=== PATIENT | male | born 1935 | race Caucasian/White ===

== ENCOUNTER 2023-07-23 09:40 | Inpatient (IN) | payer MEDICARE ==
[~2023-07-23] VITALS: Ht 177.8 cm; Wt 88.4 kg
[2023-07-23 10:48] LABS: BASOPHILS # (AUTO) 0.1 X10'3 (0-0.2); BASOPHILS % (AUTO) 0.9 % (0-1); EOSINOPHILS # (AUTO) 0.1 X10'3 (0-0.9); EOSINOPHILS % (AUTO) 2.5 % (0-6); HEMATOCRIT 41.6 % (42.0-52.0); HEMOGLOBIN 13.9 g/dl (14.0-17.9); LYMPHOCYTES # (AUTO) 1.9 X10'3 (1.1-4.8); LYMPHOCYTES % (AUTO) 31.6 % (21-51); MEAN CORPUSCULAR HGB CONC 33.4 g/dL (33.0-36.5); MEAN PLATELET VOLUME 8.4 FL (7.4-10.4); MONOCYTES # (AUTO) 0.6 X10'3 (0-0.9); MONOCYTES % (AUTO) 9.4 % (2-12); NEUTROPHILS # (AUTO) 3.3 X10'3 (1.8-7.7); NEUTROPHILS % (AUTO) 55.6 % (42-75); PLATELET COUNT 238 X10'3 (140-440); RED BLOOD COUNT 4.47 X10'6 (4.70-6.10); RED CELL DISTRIBUTION WIDTH 14.5 % (11.5-14.5); WHITE BLOOD COUNT 5.9 X10'3 (4.5-11.0)
[2023-07-23 11:02] LABS: APTT 48 SECONDS (22-32)
[2023-07-23 11:15] LABS: ALBUMIN 3.2 G/DL (3.4-5.0); ANION GAP 8 (8-16); BLOOD UREA NITROGEN 22 MG/DL (7-18); BUN/CREATININE RATIO 12.4 (10.0-20.0); CALCIUM 8.6 MG/DL (8.5-10.1); CHLORIDE 105 MMOL/L (99-107); CREATININE 1.77 MG/DL (0.60-1.10); GLUCOSE 106 MG/DL (70-104); PRO BRAIN NATRIURETIC PEPTIDE 991 PG/ML (0-450); SODIUM 139 MMOL/L (135-145); TOTAL CARBON DIOXIDE 25.8 MMOL/L (24-32); eCRCL 31 ML/MIN; eGFR 37 ML/MIN
[2023-07-23] MEDS ORDERED: heparin 10,000 units/1 ML INJ IV ONE ×2 (11:30→13:00)
[2023-07-23] MEDS: heparin 25,000 UNIT/250ml bag 250 ML IV PRN (11:57)
[2023-07-23] MEDS: MESSAGE TO NURSING IV ONE ×3 (11:59→19:25)
[2023-07-23 12:58] LABS: PROTHROMBIN TIME 10.9 SECONDS (9.0-12.0)
[2023-07-23] MEDS ORDERED: heparin 10,000 units/1 ML INJ IV PRN (13:00)
[2023-07-23] MEDS ORDERED: HYDROcodone/acetaminophen 5mg/325mg tablet PO PRN (13:00)
[2023-07-23] MEDS ORDERED: potassium Cl 20 mEq SR tablet PO PRN ×2 (13:00)
[2023-07-23] MEDS ORDERED: potassium Cl 40MEQ/1/2NS 520ml 520 ML IV PRN (13:00)
[2023-07-23] MEDS ORDERED: magnesium Cl slow-release 64mg tablet PO PRN (13:00)
[2023-07-23] MEDS ORDERED: magnesium 4gm in 100ml NS 100 ML IV PRN (13:00)
[2023-07-23] MEDS ORDERED: morphine 2 MG/ML inj. syringe IV PRN (13:00)
[2023-07-23] MEDS ORDERED: ondansetron/PF 4mg/2ml inj IV PRN (13:00)
[2023-07-23] MEDS ORDERED: magnesium 2GM in 50ml NS 50 ML IV PRN (13:00)
[2023-07-23] MEDS ORDERED: acetaminophen 325mg tablet PO PRN (13:00)
[2023-07-23] MEDS: PERFLUTREN PROTEIN-A MICROSPHR (Optison) 0.22 MG/ML 3ML VIAL IV ONE (13:10)
[2023-07-23 15:30] VITALS: BP 151/97; PULSE 95; RESP 18; TEMP 97.8; O2SAT 96
[2023-07-23 18:00] VITALS: BP 156/94; PULSE 94; RESP 25; TEMP 98.2; O2SAT 97
[2023-07-23] MEDS ORDERED: LOSA-415 PO (18:05)
[2023-07-23] MEDS ORDERED: ATOR20TA PO (18:05)
[2023-07-23] MEDS: polyvinyl alcohol eye drops 15ML BOTTLE EACHEYE PRN (19:13)
[2023-07-23] MEDS: K and/or MAG REPLACEMENT MC SCH (20:00)
[2023-07-23 22:00] VITALS: BP 158/94; PULSE 92; RESP 16; TEMP 97.8; O2SAT 96
[2023-07-24] VITALS (21 sets, daily range): BP systolic 123–182; BP diastolic 67–98; PULSE 68–103; RESP 16–22; TEMP 97.8–99; O2SAT 95–98
[2023-07-24] MEDS: MESSAGE TO NURSING IV ONE ×4 (01:50→22:35)
[2023-07-24 06:28] LABS: BASOPHILS # (AUTO) 0.1 X10'3 (0-0.2); BASOPHILS % (AUTO) 1.5 % (0-1); EOSINOPHILS # (AUTO) 0.2 X10'3 (0-0.9); EOSINOPHILS % (AUTO) 3.4 % (0-6); HEMATOCRIT 41.4 % (42.0-52.0); HEMOGLOBIN 13.8 g/dl (14.0-17.9); LYMPHOCYTES # (AUTO) 1.6 X10'3 (1.1-4.8); LYMPHOCYTES % (AUTO) 35.1 % (21-51); MEAN CORPUSCULAR HEMOGLOBIN 30.9 PG (27.0-31.0); MEAN CORPUSCULAR HGB CONC 33.3 g/dL (33.0-36.5); MEAN PLATELET VOLUME 8.1 FL (7.4-10.4); MONOCYTES # (AUTO) 0.4 X10'3 (0-0.9); MONOCYTES % (AUTO) 9.2 % (2-12); NEUTROPHILS # (AUTO) 2.4 X10'3 (1.8-7.7); NEUTROPHILS % (AUTO) 50.8 % (42-75); PLATELET COUNT 221 X10'3 (140-440); RED BLOOD COUNT 4.46 X10'6 (4.70-6.10); RED CELL DISTRIBUTION WIDTH 14.3 % (11.5-14.5); WHITE BLOOD COUNT 4.6 X10'3 (4.5-11.0)
[2023-07-24 06:41] LABS: ALBUMIN 2.8 G/DL (3.4-5.0); ANION GAP 9 (8-16); BLOOD UREA NITROGEN 20 MG/DL (7-18); BUN/CREATININE RATIO 13.3 (10.0-20.0); CALCIUM 8.5 MG/DL (8.5-10.1); CHLORIDE 109 MMOL/L (99-107); GLUCOSE 116 MG/DL (70-104); POTASSIUM 3.9 MMOL/L (3.5-5.1); SODIUM 141 MMOL/L (135-145); TOTAL CARBON DIOXIDE 23.3 MMOL/L (24-32); eCRCL 37 ML/MIN; eGFR 44 ML/MIN
[2023-07-24] MEDS: losartan 25mg tablet PO SCH (08:50)
[2023-07-24] MEDS ORDERED: verapamil 2.5 mg/ml inj IV ONE (09:57)
[2023-07-24] MEDS ORDERED: LIDOcaine 1% (10mg/ml) 2ml vial ONE (09:57)
[2023-07-24] MEDS ORDERED: midazolam 1 mg/ML 2ml injection ONE (09:58)
[2023-07-24] MEDS ORDERED: fentaNYL/PF 50MCG/1 ML 2ML syringe ONE (09:58)
[2023-07-24] MEDS ORDERED: heparin 1,000unit/ml 10ml vial 10 ML ONE (09:58)
[2023-07-24] MEDS ORDERED: iohexol 350MG/ML 100ml bottle IV ONE (09:58)
[2023-07-24] MEDS ORDERED: nitroGLYCERIN 500mcg/5mL D5W 5 ML IV ONE (10:04)
[2023-07-24] MEDS ORDERED: iohexol 350 MG/ML 50ML vial IV ONE (10:45)
[2023-07-24] MEDS: normal saline 1000ml 1,000 ML IV SCH (11:39)
[2023-07-24 11:42] LABS: CHOL/HDL RATIO 3.1 (0.00-4.99); CHOLESTEROL 105 MG/DL (0-200); HDL CHOLESTEROL 34 MG/DL (35-60); LDL CHOLESTEROL 58 MG/DL (50-100); TRIGLYCERIDES 119 MG/DL (20-135)
[2023-07-24] MEDS: MESSAGE TO PHARMACY IJ ONE (17:09)
[2023-07-24] MEDS: MESSAGE TO NURSING PO ONE ×4 (17:10)
[2023-07-24 17:57] LABS: BILIRUBIN,URINE NEGATIVE (Neg); CLARITY,URINE CLOUDY (Clear); COLOR,URINE YELLOW (Yellow); GLUCOSE, URINE NEGATIVE (Neg); KETONES,URINE NEGATIVE (Neg); LEUKOCYTE ESTERASE ,URINE NEGATIVE (Neg); NITRITES, URINE NEGATIVE (Neg); OCCULT BLOOD,URINE NEGATIVE (Neg); PROTEIN,URINE NEGATIVE (Neg)
[2023-07-24 18:12] LABS: MUCUS STRANDS FEW /LPF (Neg); SQUAMOUS EPITHELIAL CELL,UR MODERATE /LPF (FEW); UA COLLECTION TYPE NON-SPECIFIED
[2023-07-24 18:13] LABS: BACTERIA,URINE 1+ /HPF (Neg); RBC,URINE 0-2 /HPF (0-2); WBC,URINE 0-4 /HPF (0-4)
[2023-07-24 19:59] LABS: ABG HCO3 22.3 mmol/L (22.0-26.0); ABG OXYGEN SATURATION 94.3 % (94-97); ABG PH (T) 7.448 (7.340-7.440); ABG PO2 (T) 68.9 mmHg (75.0-100.0); FCOHb 0.6 % (0.0-3.9); FHHb 5.6 % (0.0-5.0); FMetHb 0.3 % (0.0-1.5); FO2Hb 93.5 % (94-97); MODE ROOM AIR; TOTAL HEMOGLOBIN 13.6 G/dl (14.0-17.9)
[2023-07-24] MEDS: albuterol 2.5 MG/3 ML nebule ONE (20:15)
[2023-07-24] MEDS: mupirocin 2% nasal ointment 1gm UD NS SCH (20:58)
[2023-07-24] MEDS: metoprolol tartrate 12.5mg (1/2 tablet) PO SCH (20:58)
[2023-07-24] MEDS: atorvastatin 20mg tablet PO SCH (20:58)
[2023-07-24] MEDS: morphine 2 MG/ML inj. syringe IV PRN (22:41)
[2023-07-24] MEDS: nitroGLYCERIN 0.4mg/hour patch TD ONE (22:42)
[2023-07-25] VITALS (14 sets, daily range): BP systolic 107–148; BP diastolic 68–86; PULSE 69–96; RESP 15–20; TEMP 97.7–98.5; O2SAT 96–98
[2023-07-25] MEDS: MESSAGE TO NURSING IV ONE ×3 (01:25→19:45)
[2023-07-25] MEDS: heparin 10,000 units/1 ML INJ IV PRN (01:33)
[2023-07-25] MEDS: cefazolin 2gm/D5W 100mL 100 ML IV ONE (05:00)
[2023-07-25 06:17] LABS: INR 1.1 INR; PROTHROMBIN TIME 11.7 SECONDS (9.0-12.0)
[2023-07-25 06:55] LABS: EOSINOPHILS # (AUTO) 0.2 X10'3 (0-0.9); EOSINOPHILS % (AUTO) 4.9 % (0-6); HEMATOCRIT 37.8 % (42.0-52.0); HEMOGLOBIN 12.4 g/dl (14.0-17.9); LYMPHOCYTES # (AUTO) 1.5 X10'3 (1.1-4.8); LYMPHOCYTES % (AUTO) 37.9 % (21-51); MEAN CORPUSCULAR HEMOGLOBIN 31.3 PG (27.0-31.0); MEAN CORPUSCULAR HGB CONC 32.8 g/dL (33.0-36.5); MEAN CORPUSCULAR VOLUME 95.6 FL (78-98); MEAN PLATELET VOLUME 8.8 FL (7.4-10.4); MONOCYTES # (AUTO) 0.4 X10'3 (0-0.9); NEUTROPHILS # (AUTO) 1.8 X10'3 (1.8-7.7); NEUTROPHILS % (AUTO) 45.2 % (42-75); PLATELET COUNT 157 X10'3 (140-440); RED BLOOD COUNT 3.95 X10'6 (4.70-6.10); RED CELL DISTRIBUTION WIDTH 14.7 % (11.5-14.5)
[2023-07-25] MEDS ORDERED: losartan 25mg tablet PO SCH (08:00)
[2023-07-25] MEDS: amLODIPine 5mg tablet PO SCH (08:15)
[2023-07-25] MEDS: MESSAGE TO NURSING PO ONE (10:00)
[2023-07-25] MEDS: ringers solution, lacted 1,000 ML IV ONE (10:55)
[2023-07-25] MEDS ORDERED: iohexol 300mg/ml 100ml inj. ONE (11:06)
[2023-07-25 12:13] LABS: ALANINE AMINOTRANSFERASE 29 U/L (12-78); ALBUMIN 2.6 G/DL (3.4-5.0); ALBUMIN/GLOBULIN RATIO 0.7 (1.1-1.5); ALKALINE PHOSPHATASE 39 IU/L (46-116); ANION GAP 8 (8-16); ASPARTATE AMINO TRANSFERASE 28 U/L (10-37); BILIRUBIN,TOTAL 0.6 MG/DL (0.1-1.0); BLOOD UREA NITROGEN 15 MG/DL (7-18); BUN/CREATININE RATIO 10.6 (10.0-20.0); CALCIUM 8.1 MG/DL (8.5-10.1); CHLORIDE 106 MMOL/L (99-107); CREATININE 1.42 MG/DL (0.60-1.10); GLUCOSE 120 MG/DL (70-104); MAGNESIUM 2.1 MG/DL (1.5-2.4); POTASSIUM 3.8 MMOL/L (3.5-5.1); SODIUM 137 MMOL/L (135-145); TOTAL CARBON DIOXIDE 22.9 MMOL/L (24-32); TOTAL PROTEIN 6.4 G/DL (6.4-8.2); eCRCL 39 ML/MIN; eGFR 47 ML/MIN
[2023-07-25] MEDS: acetylcysteine 200 MG/ml 4ml vial PO SCH (16:13)
[2023-07-25] MEDS: LidoCAINE 2% Topical Jelly 11mL syringe (UROJET) TOP ONE (16:55)
[2023-07-26] VITALS (16 sets, daily range): BP systolic 109–207; BP diastolic 40–87; PULSE 74–113; RESP 10–36; TEMP 97.4–98.3; O2SAT 95–99
[2023-07-26 02:24] LABS: ALBUMIN 2.7 G/DL (3.4-5.0); ANION GAP 4 (8-16); BLOOD UREA NITROGEN 13 MG/DL (7-18); CALCIUM 8.5 MG/DL (8.5-10.1); CHLORIDE 109 MMOL/L (99-107); CREATININE 1.45 MG/DL (0.60-1.10); GLUCOSE 104 MG/DL (70-104); MAGNESIUM 2.1 MG/DL (1.5-2.4); POTASSIUM 4.1 MMOL/L (3.5-5.1); SODIUM 141 MMOL/L (135-145); TOTAL CARBON DIOXIDE 27.8 MMOL/L (24-32); eCRCL 38 ML/MIN; eGFR 46 ML/MIN
[2023-07-26 02:26] LABS: BASOPHILS % (AUTO) 0.9 % (0-1); EOSINOPHILS # (AUTO) 0.3 X10'3 (0-0.9); EOSINOPHILS % (AUTO) 5.8 % (0-6); HEMATOCRIT 40.1 % (42.0-52.0); HEMOGLOBIN 13.6 g/dl (14.0-17.9); LYMPHOCYTES # (AUTO) 1.7 X10'3 (1.1-4.8); LYMPHOCYTES % (AUTO) 38.5 % (21-51); MEAN CORPUSCULAR HEMOGLOBIN 31.4 PG (27.0-31.0); MEAN CORPUSCULAR HGB CONC 33.8 g/dL (33.0-36.5); MEAN CORPUSCULAR VOLUME 92.6 FL (78-98); MEAN PLATELET VOLUME 7.9 FL (7.4-10.4); MONOCYTES # (AUTO) 0.5 X10'3 (0-0.9); MONOCYTES % (AUTO) 10.2 % (2-12); NEUTROPHILS % (AUTO) 44.6 % (42-75); PLATELET COUNT 182 X10'3 (140-440); RED BLOOD COUNT 4.33 X10'6 (4.70-6.10); RED CELL DISTRIBUTION WIDTH 14.7 % (11.5-14.5); WHITE BLOOD COUNT 4.5 X10'3 (4.5-11.0)
[2023-07-26 02:28] LABS: INR 1.1 INR; PROTHROMBIN TIME 11.1 SECONDS (9.0-12.0)
[2023-07-26] MEDS: MESSAGE TO NURSING IV ONE (02:50)
[2023-07-26] MEDS: Insulin Reg/NS 100units/100mL 100 ML IV SCH ×2 (04:10→17:00)
[2023-07-26] MEDS ORDERED: insulin glargine (Lantus) pen - multi-dose SQ PRN ×2 (04:10→17:00)
[2023-07-26] MEDS ORDERED: dextrose 50%-water 50ml dispensing syringe IV PRN ×2 (04:10→17:00)
[2023-07-26] MEDS: MIDAZolam 1 MG/ML 5ML VIAL IV ONE (06:00)
[2023-07-26] MEDS: cefazolin 2gm/D5W 100mL 100 ML IV ONE (10:00)
[2023-07-26] MEDS ORDERED: cefazolin 2gm/D5W 100mL 100 ML IV SCH (10:00)
[2023-07-26] MEDS ORDERED: fentaNYL /PF 50mcg/ml 5ml ampule ONE ×2 (10:42)
[2023-07-26] MEDS ORDERED: MIDAZolam 1mg/ml 10ml vial ONE (10:42)
[2023-07-26] MEDS ORDERED: rocuronium 10mg/ml inj IV ONE ×3 (10:45→16:00)
[2023-07-26] MEDS ORDERED: propofol inj 20 ML IV ONE (10:45)
[2023-07-26] MEDS ORDERED: LIDOcaine 2% (20mg/ml) 5ml vial ONE (10:45)
[2023-07-26] MEDS: famotidine 20mg tablet PO ONE (11:38)
[2023-07-26] MEDS: midazolam 1 mg/ML 2ml injection IV ONE (11:43)
[2023-07-26] MEDS ORDERED: sevoflurane 250ml liquid IH ONE (11:55)
[2023-07-26] MEDS ORDERED: aminocaproic acid 250 MG/1 ML inj. ONE (12:00)
[2023-07-26 12:20] LABS: ABG BASE EXCESS -2.1 mmol/L (-2.0-2.0); ABG HCO3 20.9 mmol/L (22.0-26.0); ABG OXYGEN SATURATION 99.3 % (94-97); ABG PCO2 30.7 mmHg (35.0-48.0); ABG PH 7.451 (7.340-7.440); ABG PO2 425.9 mmHg (75.0-100.0); CL (ABG) 107 mmol/L (99-107); FCOHb 0.3 % (0.0-3.9); FHHb 0.7 % (0.0-5.0); FMetHb 0.3 % (0.0-1.5); FO2Hb 98.7 % (94-97); GLUCOSE (ABG) 116 mg/dl (70-104); IONIZED CA (ABG) 1.13 mmol/L (1.10-1.30); K (ABG) 4.1 mmol/L (3.5-5.1); TOTAL HEMOGLOBIN 13.1 G/dl (14.0-17.9)
[2023-07-26 12:27] LABS: ACT @ 1.70 U 275 SEC (193-297); ACT @ 2.84 U 382 SEC (260-420); BASELINE ACT 144 SEC (101-148); PATIENT WEIGHT 70.0k KG
[2023-07-26] MEDS: ceFAZolin 1000mg inj ONE (12:34)
[2023-07-26] MEDS: BUPIVACAINE liposomal/PF 13.3 MG/ML vial IM ONE (12:34)
[2023-07-26] MEDS: BUPIVAcaine/PF 2.5mg/ml (0.25%) 10ml vial ONE (12:34)
[2023-07-26] MEDS ORDERED: albumin (Human) 5% 250ml 250 ML IV ONE ×2 (13:18→13:19)
[2023-07-26 13:20] LABS: ABG HCO3 VENOUS 20.1 mmol/L (21.0-28.0); ABG OXYGEN SATURATION VENOUS 76.5 % (75 - 99 %); ABG PCO2 VENOUS 37.3 mmHg (41.0-54.0); ABG PH (VENOUS) 7.349 (7.310-7.450); ABG PO2 VENOUS 41.8 mmHg (25.0-35.0); CL (ABG) 105 mmol/L (99-107); FCOHb VENOUS 0.3 %; FHHb VENOUS 23.4 %; FMetHb VENOUS 0.3 % (0.0 - 0.5); GLUCOSE (ABG) 106 mg/dl (70-104); IONIZED CA (ABG) 1.11 mmol/L (1.10-1.30); K (ABG) 4.4 mmol/L (3.5-5.1); TOTAL HEMOGLOBIN 12.3 G/dl (14.0-17.9)
[2023-07-26 13:56] LABS: ABG BASE EXCESS VENOUS -4.8 mmol/L (-2.0 - 2.0); ABG HCO3 VENOUS 20.2 mmol/L (21.0-28.0); ABG OXYGEN SATURATION VENOUS 67.6 % (75 - 99 %); ABG PCO2 VENOUS 37.2 mmHg (41.0-54.0); ABG PH (VENOUS) 7.352 (7.310-7.450); ABG PO2 VENOUS 35.1 mmHg (25.0-35.0); CL (ABG) 106 mmol/L (99-107); FCOHb VENOUS 0.3 %; FHHb VENOUS 32.2 %; FMetHb VENOUS 0.3 % (0.0 - 0.5); FO2Hb VENOUS 67.2 %; GLUCOSE (ABG) 129 mg/dl (70-104); IONIZED CA (ABG) 1.08 mmol/L (1.10-1.30); K (ABG) 4.5 mmol/L (3.5-5.1)
[2023-07-26 14:37] LABS: ABG BASE EXCESS -3.8 mmol/L (-2.0-2.0); ABG HCO3 20.7 mmol/L (22.0-26.0); ABG OXYGEN SATURATION 98.9 % (94-97); ABG PH 7.378 (7.340-7.440); ABG PO2 150.5 mmHg (75.0-100.0); CL (ABG) 107 mmol/L (99-107); FCOHb 0.3 % (0.0-3.9); FHHb 1.1 % (0.0-5.0); FO2Hb 98.6 % (94-97); GLUCOSE (ABG) 139 mg/dl (70-104); IONIZED CA (ABG) 1.08 mmol/L (1.10-1.30); K (ABG) 4.5 mmol/L (3.5-5.1); TOTAL HEMOGLOBIN 12.3 G/dl (14.0-17.9)
[2023-07-26 15:11] LABS: ABG BASE EXCESS -4.5 mmol/L (-2.0-2.0); ABG HCO3 20.4 mmol/L (22.0-26.0); ABG OXYGEN SATURATION 98.9 % (94-97); ABG PH 7.359 (7.340-7.440); ABG PO2 168.7 mmHg (75.0-100.0); CL (ABG) 107 mmol/L (99-107); FCOHb 0.3 % (0.0-3.9); FHHb 1.1 % (0.0-5.0); FMetHb 0.3 % (0.0-1.5); FO2Hb 98.3 % (94-97); GLUCOSE (ABG) 150 mg/dl (70-104); IONIZED CA (ABG) 1.07 mmol/L (1.10-1.30); K (ABG) 4.6 mmol/L (3.5-5.1); TOTAL HEMOGLOBIN 12.5 G/dl (14.0-17.9)
[2023-07-26 15:40] LABS: ABG BASE EXCESS -5.2 mmol/L (-2.0-2.0); ABG HCO3 20.1 mmol/L (22.0-26.0); ABG OXYGEN SATURATION 98.7 % (94-97); ABG PCO2 38.1 mmHg (35.0-48.0); ABG PO2 146.4 mmHg (75.0-100.0); CL (ABG) 108 mmol/L (99-107); FCOHb 0.3 % (0.0-3.9); FHHb 1.3 % (0.0-5.0); FMetHb 0.3 % (0.0-1.5); FO2Hb 98.1 % (94-97); GLUCOSE (ABG) 144 mg/dl (70-104); IONIZED CA (ABG) 1.07 mmol/L (1.10-1.30); K (ABG) 4.4 mmol/L (3.5-5.1); TOTAL HEMOGLOBIN 11.9 G/dl (14.0-17.9)
[2023-07-26 15:42] LABS: ACTIVATED CLOTTING TIME 124 SEC (101-148)
[2023-07-26 15:52] LABS: ABG BASE EXCESS VENOUS -7.9 mmol/L (-2.0 - 2.0); ABG HCO3 VENOUS 17.8 mmol/L (21.0-28.0); ABG OXYGEN SATURATION VENOUS 78.6 % (75 - 99 %); ABG PCO2 VENOUS 36.8 mmHg (41.0-54.0); ABG PH (VENOUS) 7.302 (7.310-7.450); ABG PO2 VENOUS 45.2 mmHg (25.0-35.0); CL (ABG) 107 mmol/L (99-107); FCOHb VENOUS 0.3 %; FHHb VENOUS 21.3 %; FMetHb VENOUS 0.3 % (0.0 - 0.5); FO2Hb VENOUS 78.1 %; GLUCOSE (ABG) 127 mg/dl (70-104); IONIZED CA (ABG) 1.08 mmol/L (1.10-1.30); K (ABG) 4.1 mmol/L (3.5-5.1); TOTAL HEMOGLOBIN 11.7 G/dl (14.0-17.9)
[2023-07-26] MEDS ORDERED: fentaNYL/PF 50MCG/1 ML 2ML syringe ONE (16:02)
[2023-07-26 16:19] LABS: ABG BASE EXCESS VENOUS -5.6 mmol/L (-2.0 - 2.0); ABG HCO3 VENOUS 20.4 mmol/L (21.0-28.0); ABG OXYGEN SATURATION VENOUS 76.3 % (75 - 99 %); ABG PCO2 VENOUS 42.2 mmHg (41.0-54.0); ABG PH (VENOUS) 7.303 (7.310-7.450); ABG PO2 VENOUS 43.3 mmHg (25.0-35.0); CL (ABG) 108 mmol/L (99-107); FCOHb VENOUS 0.3 %; FHHb VENOUS 23.6 %; FMetHb VENOUS 0.3 % (0.0 - 0.5); FO2Hb VENOUS 75.8 %; GLUCOSE (ABG) 133 mg/dl (70-104); IONIZED CA (ABG) 1.08 mmol/L (1.10-1.30); TOTAL HEMOGLOBIN 12.1 G/dl (14.0-17.9)
[2023-07-26 16:21] LABS: ACTIVATED CLOTTING TIME 125 SEC (101-148)
[2023-07-26] MEDS ORDERED: potassium Cl 40MEQ/1/2NS 520ml 520 ML IV PRN (17:00)
[2023-07-26] MEDS ORDERED: potassium Cl 40MEQ/270ML bag 250 ML IV PRN (17:00)
[2023-07-26] MEDS ORDERED: metoclopramide 5 mg/ml inj IV PRN (17:00)
[2023-07-26] MEDS ORDERED: ondansetron/PF 4mg/2ml inj IV PRN (17:00)
[2023-07-26] MEDS ORDERED: sodium phosphate inj. 30 MMOL in dextrose 5%-water 250 ML IV PRN (17:00)
[2023-07-26] MEDS ORDERED: potassium CL 10mEq/100ml bag 100 ML IV PRN (17:00)
[2023-07-26] MEDS ORDERED: normal saline 250ml IV soln 250 ML IV PRN (17:00)
[2023-07-26] MEDS ORDERED: magnesium hydroxide 30ml (MOM) UD suspension PO PRN (17:00)
[2023-07-26] MEDS ORDERED: mineral oil 133ml enema RC PRN (17:00)
[2023-07-26] MEDS ORDERED: HYDROmorphone 1 mg/ml syringe IV PRN (17:00)
[2023-07-26] MEDS ORDERED: sodium phosphate inj. 15 MMOL in dextrose 5%-water 250 ML IV PRN (17:00)
[2023-07-26] MEDS ORDERED: acetaminophen 325mg tablet PO PRN ×2 (17:00)
[2023-07-26] MEDS ORDERED: Neutra Phos packet PO PRN (17:00)
[2023-07-26 17:31] LABS: ABG BASE EXCESS -5.2 mmol/L (-2.0-2.0); ABG HCO3 20.3 mmol/L (22.0-26.0); ABG OXYGEN SATURATION 98.8 % (94-97); ABG PCO2 (T) 36.2 mmHg (35.0-48.0); ABG PH (T) 7.357 (7.340-7.440); ABG PO2 (T) 131.9 mmHg (75.0-100.0); FCOHb 0.3 % (0.0-3.9); FHHb 1.2 % (0.0-5.0); FMetHb 0.3 % (0.0-1.5); FO2Hb 98.2 % (94-97); MODE VENT - SIMV; PEEP 5 cm H2O; RESPIRATORY RATE 10 b/min; TIDAL VOLUME 550 mL; TOTAL HEMOGLOBIN 12.3 G/dl (14.0-17.9)
[2023-07-26 17:34] LABS: BASOPHILS % (AUTO) 0.4 % (0-1); EOSINOPHILS # (AUTO) 0.1 X10'3 (0-0.9); EOSINOPHILS % (AUTO) 0.7 % (0-6); HEMATOCRIT 33.8 % (42.0-52.0); HEMOGLOBIN 11.4 g/dl (14.0-17.9); LYMPHOCYTES # (AUTO) 1.2 X10'3 (1.1-4.8); LYMPHOCYTES % (AUTO) 16.4 % (21-51); MEAN CORPUSCULAR HEMOGLOBIN 31.4 PG (27.0-31.0); MEAN CORPUSCULAR HGB CONC 33.6 g/dL (33.0-36.5); MEAN CORPUSCULAR VOLUME 93.5 FL (78-98); MEAN PLATELET VOLUME 8.3 FL (7.4-10.4); MONOCYTES # (AUTO) 0.4 X10'3 (0-0.9); NEUTROPHILS # (AUTO) 5.7 X10'3 (1.8-7.7); NEUTROPHILS % (AUTO) 77.5 % (42-75); PLATELET COUNT 128 X10'3 (140-440); RED BLOOD COUNT 3.62 X10'6 (4.70-6.10); RED CELL DISTRIBUTION WIDTH 14.7 % (11.5-14.5); WHITE BLOOD COUNT 7.3 X10'3 (4.5-11.0)
[2023-07-26] MEDS: sodium chloride 0.45% 1,000 ML IV SCH (17:37)
[2023-07-26 17:38] LABS: ALANINE AMINOTRANSFERASE 95 U/L (12-78); ALBUMIN 2.6 G/DL (3.4-5.0); ALBUMIN/GLOBULIN RATIO 0.9 (1.1-1.5); ALKALINE PHOSPHATASE 32 IU/L (46-116); ANION GAP 9 (8-16); ASPARTATE AMINO TRANSFERASE 104 U/L (10-37); BILIRUBIN,TOTAL 0.9 MG/DL (0.1-1.0); BLOOD UREA NITROGEN 11 MG/DL (7-18); BUN/CREATININE RATIO 8.8 (10.0-20.0); CALCIUM 7.4 MG/DL (8.5-10.1); CHLORIDE 110 MMOL/L (99-107); CREATININE 1.25 MG/DL (0.60-1.10); GLUCOSE 125 MG/DL (70-104); MAGNESIUM 1.7 MG/DL (1.5-2.4); PHOSPHORUS 3.2 MG/DL (2.3-4.5); POTASSIUM 3.9 MMOL/L (3.5-5.1); SODIUM 141 MMOL/L (135-145); TOTAL CARBON DIOXIDE 22.1 MMOL/L (24-32); TOTAL PROTEIN 5.4 G/DL (6.4-8.2); eCRCL 44 ML/MIN; eGFR 55 ML/MIN
[2023-07-26] MEDS: sodium bicarbonate (8.4%) 1 mEq/ml syringe IV ONE ×3 (17:50→22:45)
[2023-07-26] MEDS: albumin (Human) 5% 250ml 250 ML IV PRN (17:58)
[2023-07-26] MEDS: niCARDipine-NS 40mg/200ml IVPB 200 ML IV PRN (17:59)
[2023-07-26] MEDS: potassium Cl 20mEq/100mL bag 100 ML IV PRN (17:59)
[2023-07-26 18:05] LABS: APTT 25 SECONDS (22-32); FIBRINOGEN 361 MG/DL (177-424); INR 1.1 INR; PROTHROMBIN TIME 11.9 SECONDS (9.0-12.0)
[2023-07-26] MEDS: nitroGLYCERIN-Tridil 50MG/D5W 250 ML IV PRN (18:14)
[2023-07-26] MEDS: HYDROmorphone inj. 0.5 MG/0.5 ML DISP.SYRIN IV PRN (18:43)
[2023-07-26] MEDS ORDERED: calcium gluconate inj. 2 GM in normal saline 100ml IV soln 100 ML IV ONE (19:05)
[2023-07-26] MEDS: calcium gluconate inj. 2 GM in normal saline 100ml IV soln 80 ML IV ONE (19:34)
[2023-07-26] MEDS: sennosides/docusate sodium tablet PO SCH (20:00)
[2023-07-26] MEDS: magnesium 4gm in 100ml NS 100 ML IV PRN (20:03)
[2023-07-26] MEDS: mupirocin 2% nasal ointment 1gm UD NS SCH (20:27)
[2023-07-26] MEDS: gabapentin 300mg capsule PO SCH (20:27)
[2023-07-26] MEDS: atorvastatin 10mg tablet PO SCH (21:00)
[2023-07-26] MEDS: acetaminophen 1,000mg/100ml IV 100 ML IV SCH (21:09)
[2023-07-26 21:24] LABS: ABG BASE EXCESS -4.8 mmol/L (-2.0-2.0); ABG HCO3 19.5 mmol/L (22.0-26.0); ABG OXYGEN SATURATION 97.9 % (94-97); ABG PCO2 (T) 32.2 mmHg (35.0-48.0); ABG PH (T) 7.397 (7.340-7.440); ABG PO2 (T) 102.9 mmHg (75.0-100.0); FCOHb 0.3 % (0.0-3.9); FHHb 2.1 % (0.0-5.0); FMetHb 0.3 % (0.0-1.5); FO2Hb 97.3 % (94-97); MODE VENT - SIMV; PATIENT TEMPERATURE 36.2; PEEP 5 cm H2O; RESPIRATORY RATE 8 b/min; TIDAL VOLUME 550 mL; TOTAL HEMOGLOBIN 11.5 G/dl (14.0-17.9)
[2023-07-26] MEDS ORDERED: sodium bicarbonate (8.4%) inj. 100 MEQ in dextrose 5%-water 1,000 ML IV SCH (21:35)
[2023-07-26] MEDS: albumin (human) 25% 100ml IV 100 ML IV ONE (21:49)
[2023-07-26] MEDS: DOBUTamine-DoBUTrex 500mg/D5W 250 ML IV SCH (21:52)
[2023-07-26 23:22] LABS: ALBUMIN 3.3 G/DL (3.4-5.0); ANION GAP 11 (8-16); BLOOD UREA NITROGEN 13 MG/DL (7-18); BUN/CREATININE RATIO 8.1 (10.0-20.0); CALCIUM 8.2 MG/DL (8.5-10.1); CHLORIDE 105 MMOL/L (99-107); CREATININE 1.61 MG/DL (0.60-1.10); GLUCOSE 134 MG/DL (70-104); HEMOGLOBIN 9.8 g/dl (14.0-17.9); MAGNESIUM 2.5 MG/DL (1.5-2.4); PLATELET COUNT 120 X10'3 (140-440); POTASSIUM 3.8 MMOL/L (3.5-5.1); RED BLOOD COUNT 3.12 X10'6 (4.70-6.10); SODIUM 141 MMOL/L (135-145); TOTAL CARBON DIOXIDE 25.4 MMOL/L (24-32); WHITE BLOOD COUNT 5.8 X10'3 (4.5-11.0); eCRCL 34 ML/MIN; eGFR 41 ML/MIN
[2023-07-26 23:24] LABS: BASOPHILS % (AUTO) 0.3 % (0-1); EOSINOPHILS % (AUTO) 0 % (0-6); LYMPHOCYTES # (AUTO) 0.4 X10'3 (1.1-4.8); LYMPHOCYTES % (AUTO) 6.9 % (21-51); MEAN CORPUSCULAR HEMOGLOBIN 31.3 PG (27.0-31.0); MEAN CORPUSCULAR HGB CONC 33.7 g/dL (33.0-36.5); MEAN CORPUSCULAR VOLUME 92.9 FL (78-98); MEAN PLATELET VOLUME 8.3 FL (7.4-10.4); MONOCYTES # (AUTO) 0.4 X10'3 (0-0.9); NEUTROPHILS # (AUTO) 4.9 X10'3 (1.8-7.7); NEUTROPHILS % (AUTO) 85.8 % (42-75); RED CELL DISTRIBUTION WIDTH 14.4 % (11.5-14.5)
[2023-07-26 23:27] LABS: ABG HCO3 25.7 mmol/L (22.0-26.0); ABG OXYGEN SATURATION 96.4 % (94-97); ABG PCO2 (T) 35.7 mmHg (35.0-48.0); ABG PH (T) 7.473 (7.340-7.440); ABG PO2 (T) 81.4 mmHg (75.0-100.0); FCOHb 0.3 % (0.0-3.9); FHHb 3.6 % (0.0-5.0); FMetHb 0.3 % (0.0-1.5); FO2Hb 95.8 % (94-97); MODE VENT - CPAP; PATIENT TEMPERATURE 36.3; PEEP 5 cm H2O; TOTAL HEMOGLOBIN 10.2 G/dl (14.0-17.9)
[2023-07-27] VITALS (28 sets, daily range): BP systolic 110–174; BP diastolic 42–65; PULSE 80–122; RESP 11–40; O2SAT 91–99
[2023-07-27] MEDS: ceFAZolin/D5W- 1GM premix 50 ML IV SCH (00:14)
[2023-07-27] MEDS: albumin (Human) 5% 250ml 250 ML IV ONE ×2 (00:15→17:58)
[2023-07-27] MEDS ORDERED: ipratropium/albuterol 3ml nebule NEB PRN (03:35)
[2023-07-27] MEDS: traMADol 50MG tablet PO PRN (04:53)
[2023-07-27 05:03] LABS: BASOPHILS % (AUTO) 0.4 % (0-1); EOSINOPHILS % (AUTO) 0 % (0-6); HEMATOCRIT 29.3 % (42.0-52.0); HEMOGLOBIN 9.9 g/dl (14.0-17.9); LYMPHOCYTES # (AUTO) 0.6 X10'3 (1.1-4.8); LYMPHOCYTES % (AUTO) 9.4 % (21-51); MEAN CORPUSCULAR HEMOGLOBIN 31.4 PG (27.0-31.0); MEAN CORPUSCULAR HGB CONC 33.8 g/dL (33.0-36.5); MEAN CORPUSCULAR VOLUME 93.1 FL (78-98); MEAN PLATELET VOLUME 8.4 FL (7.4-10.4); MONOCYTES # (AUTO) 0.5 X10'3 (0-0.9); MONOCYTES % (AUTO) 7.8 % (2-12); NEUTROPHILS % (AUTO) 82.4 % (42-75); PLATELET COUNT 120 X10'3 (140-440); RED BLOOD COUNT 3.15 X10'6 (4.70-6.10); RED CELL DISTRIBUTION WIDTH 14.7 % (11.5-14.5); WHITE BLOOD COUNT 6.1 X10'3 (4.5-11.0)
[2023-07-27 05:14] LABS: ALANINE AMINOTRANSFERASE 66 U/L (12-78); ALBUMIN 3.4 G/DL (3.4-5.0); ALBUMIN/GLOBULIN RATIO 1.4 (1.1-1.5); ALKALINE PHOSPHATASE 30 IU/L (46-116); ANION GAP 9 (8-16); ASPARTATE AMINO TRANSFERASE 67 U/L (10-37); BLOOD UREA NITROGEN 13 MG/DL (7-18); BUN/CREATININE RATIO 9.5 (10.0-20.0); CALCIUM 8.2 MG/DL (8.5-10.1); CHLORIDE 106 MMOL/L (99-107); CREATININE 1.37 MG/DL (0.60-1.10); GLUCOSE 120 MG/DL (70-104); MAGNESIUM 3.5 MG/DL (1.5-2.4); PHOSPHORUS 2.7 MG/DL (2.3-4.5); POTASSIUM 4.7 MMOL/L (3.5-5.1); SODIUM 140 MMOL/L (135-145); TOTAL CARBON DIOXIDE 24.7 MMOL/L (24-32); TOTAL PROTEIN 5.9 G/DL (6.4-8.2); eCRCL 40 ML/MIN; eGFR 49 ML/MIN
[2023-07-27 05:29] LABS: APTT 26 SECONDS (22-32); PROTHROMBIN TIME 11.1 SECONDS (9.0-12.0)
[2023-07-27] MEDS ORDERED: nitroGLYCERIN-Tridil 50MG/D5W 250 ML IV PRN (07:00)
[2023-07-27] MEDS ORDERED: DOBUTamine-DoBUTrex 500mg/D5W 250 ML IV SCH (07:00)
[2023-07-27] MEDS: gabapentin 300mg capsule PO SCH (08:00)
[2023-07-27] MEDS: acetaminophen 1,000mg/100ml IV 100 ML IV SCH (08:15)
[2023-07-27] MEDS: HYDROmorphone inj. 0.5 MG/0.5 ML DISP.SYRIN IV PRN (08:15)
[2023-07-27] MEDS: potassium chloride 10mEq ER tablet PO SCH (08:16)
[2023-07-27] MEDS: aspirin 81mg tab.chew PO SCH (08:16)
[2023-07-27] MEDS: metoprolol tartrate 12.5mg (1/2 tablet) PO SCH (08:17)
[2023-07-27] MEDS: furosemide 20 MG/2 ML vial IV SCH (08:20)
[2023-07-27] MEDS: amiodarone 200mg tablet PO SCH (08:20)
[2023-07-27] MEDS: amLODIPine 5mg tablet PO SCH ×2 (08:20→20:02)
[2023-07-27] MEDS: ipratropium/albuterol 3ml nebule NEB SCH (09:37)
[2023-07-27] MEDS ORDERED: TIOT18CA3 INH (11:33)
[2023-07-27] MEDS: tamsulosin 0.4mg capsule PO SCH (12:37)
[2023-07-27] MEDS: amLODIPine 5mg tablet PO ONE (17:20)
[2023-07-27] MEDS: furosemide 40mg/4ml inj IV ONE (17:59)
[2023-07-27] MEDS: furosemide inj 100 MG in normal saline 100ml IV soln 90 ML IV SCH (18:00)
[2023-07-27] MEDS: DOBUTamine-DoBUTrex 500mg/D5W 250 ML IV SCH (19:40)
[2023-07-27] MEDS: metoclopramide 5 mg/ml inj IV SCH (20:01)
[2023-07-27] MEDS: atorvastatin 10mg tablet PO SCH (20:02)
[2023-07-27] MEDS: LIDOcaine 5% patch TP SCH (20:03)
[2023-07-27] MEDS: INSULIN LISPRO 100 UNIT/ML INSULN.PEN MULTI-DOSE SQ SCH (21:00)
[2023-07-27 21:13] LABS: BILIRUBIN,DIRECT 0.3 MG/DL (0-0.3); FREE T4 (FREE THYROXINE) 0.97 NG/DL (0.73-1.40); THYROID STIMULATING HORMONE 1.49 ulU/ml (0.34-4.50)
[2023-07-27 22:09] LABS: ALBUMIN 3.1 G/DL (3.4-5.0); ANION GAP 9 (8-16); BLOOD UREA NITROGEN 18 MG/DL (7-18); BUN/CREATININE RATIO 10.6 (10.0-20.0); CALCIUM 7.5 MG/DL (8.5-10.1); CHLORIDE 107 MMOL/L (99-107); GLUCOSE 151 MG/DL (70-104); POTASSIUM 4.1 MMOL/L (3.5-5.1); SODIUM 141 MMOL/L (135-145); eCRCL 32 ML/MIN; eGFR 38 ML/MIN
[2023-07-28] VITALS (30 sets, daily range): BP systolic 83–160; BP diastolic 43–90; PULSE 74–101; RESP 12–30; O2SAT 90–97
[2023-07-28 03:23] LABS: BASOPHILS % (AUTO) 0.5 % (0-1); EOSINOPHILS # (AUTO) 0.1 X10'3 (0-0.9); EOSINOPHILS % (AUTO) 0.8 % (0-6); HEMATOCRIT 28.6 % (42.0-52.0); HEMOGLOBIN 9.7 g/dl (14.0-17.9); LYMPHOCYTES # (AUTO) 0.8 X10'3 (1.1-4.8); LYMPHOCYTES % (AUTO) 10.9 % (21-51); MEAN CORPUSCULAR HEMOGLOBIN 31.3 PG (27.0-31.0); MEAN PLATELET VOLUME 8.6 FL (7.4-10.4); MONOCYTES # (AUTO) 0.4 X10'3 (0-0.9); MONOCYTES % (AUTO) 4.9 % (2-12); NEUTROPHILS % (AUTO) 82.9 % (42-75); PLATELET COUNT 97 X10'3 (140-440); RED BLOOD COUNT 3.11 X10'6 (4.70-6.10); RED CELL DISTRIBUTION WIDTH 14.9 % (11.5-14.5); WHITE BLOOD COUNT 7.3 X10'3 (4.5-11.0)
[2023-07-28 03:37] LABS: ALBUMIN 2.9 G/DL (3.4-5.0); ANION GAP 8 (8-16); BLOOD UREA NITROGEN 19 MG/DL (7-18); BUN/CREATININE RATIO 11.2 (10.0-20.0); CALCIUM 7.7 MG/DL (8.5-10.1); CHLORIDE 105 MMOL/L (99-107); CREATININE 1.69 MG/DL (0.60-1.10); GLUCOSE 141 MG/DL (70-104); MAGNESIUM 2.7 MG/DL (1.5-2.4); PHOSPHORUS 3.4 MG/DL (2.3-4.5); POTASSIUM 3.9 MMOL/L (3.5-5.1); SODIUM 139 MMOL/L (135-145); TOTAL CARBON DIOXIDE 25.9 MMOL/L (24-32); eCRCL 32 ML/MIN; eGFR 39 ML/MIN
[2023-07-28] MEDS: potassium Cl 40MEQ/270ML bag 270 ML IV PRN (05:04)
[2023-07-28] MEDS: metoclopramide 5 mg/ml inj IV SCH (05:07)
[2023-07-28] MEDS ORDERED: DOBUTamine-DoBUTrex 500mg/D5W 250 ML IV SCH (06:00)
[2023-07-28] MEDS: amLODIPine 5mg tablet PO SCH (08:30)
[2023-07-28] MEDS: pantoprazole 40mg Tablet.DR PO SCH (08:32)
[2023-07-28 11:07] LABS: ALBUMIN 2.9 G/DL (3.4-5.0); ANION GAP 9 (8-16); BLOOD UREA NITROGEN 20 MG/DL (7-18); BUN/CREATININE RATIO 10.8 (10.0-20.0); CALCIUM 7.4 MG/DL (8.5-10.1); CHLORIDE 104 MMOL/L (99-107); CREATININE 1.86 MG/DL (0.60-1.10); GLUCOSE 161 MG/DL (70-104); POTASSIUM 4.4 MMOL/L (3.5-5.1); SODIUM 138 MMOL/L (135-145); eCRCL 29 ML/MIN; eGFR 35 ML/MIN
[2023-07-28] MEDS: albumin (human) 25% 100 ML IV solution IV STA (12:08)
[2023-07-28] MEDS ORDERED: NUT.TX.IMPAIRED DIGEST FXN (Ensure Clear) 237 ML PO SCH (18:00)
[2023-07-28] MEDS: lactose-reduced food (Ensure Enlive) - 237ml bottle PO SCH (18:00)
[2023-07-28] MEDS: JUVEN Shake w/Arg/Glut/Ca2+Bmb (Juven 19.3gm) pkt 240ml PO SCH (18:30)
[2023-07-28] MEDS: DOBUTamine-DoBUTrex 500mg/D5W 250 ML IV SCH (20:57)
[2023-07-28] MEDS: furosemide 40mg/4ml inj IV SCH (20:59)
[2023-07-29] VITALS (31 sets, daily range): BP systolic 114–167; BP diastolic 48–83; PULSE 78–115; RESP 13–30; O2SAT 91–97
[2023-07-29 03:25] LABS: BASOPHILS % (AUTO) 0.4 % (0-1); EOSINOPHILS # (AUTO) 0.1 X10'3 (0-0.9); EOSINOPHILS % (AUTO) 1.9 % (0-6); HEMOGLOBIN 9.8 g/dl (14.0-17.9); LYMPHOCYTES # (AUTO) 0.7 X10'3 (1.1-4.8); LYMPHOCYTES % (AUTO) 8.8 % (21-51); MEAN CORPUSCULAR HEMOGLOBIN 30.8 PG (27.0-31.0); MEAN CORPUSCULAR HGB CONC 32.7 g/dL (33.0-36.5); MEAN CORPUSCULAR VOLUME 94.1 FL (78-98); MEAN PLATELET VOLUME 9.6 FL (7.4-10.4); MONOCYTES # (AUTO) 0.4 X10'3 (0-0.9); MONOCYTES % (AUTO) 4.6 % (2-12); NEUTROPHILS # (AUTO) 6.4 X10'3 (1.8-7.7); NEUTROPHILS % (AUTO) 84.3 % (42-75); PLATELET COUNT 92 X10'3 (140-440); RED BLOOD COUNT 3.19 X10'6 (4.70-6.10); RED CELL DISTRIBUTION WIDTH 15.6 % (11.5-14.5); WHITE BLOOD COUNT 7.6 X10'3 (4.5-11.0)
[2023-07-29 03:43] LABS: ALBUMIN 3.1 G/DL (3.4-5.0); ANION GAP 9 (8-16); BLOOD UREA NITROGEN 28 MG/DL (7-18); BUN/CREATININE RATIO 14.7 (10.0-20.0); CALCIUM 7.8 MG/DL (8.5-10.1); CHLORIDE 102 MMOL/L (99-107); GLUCOSE 128 MG/DL (70-104); MAGNESIUM 2.6 MG/DL (1.5-2.4); PHOSPHORUS 2.8 MG/DL (2.3-4.5); POTASSIUM 3.7 MMOL/L (3.5-5.1); SODIUM 139 MMOL/L (135-145); TOTAL CARBON DIOXIDE 27.6 MMOL/L (24-32); eCRCL 29 ML/MIN; eGFR 34 ML/MIN
[2023-07-29] MEDS: DOBUTamine-DoBUTrex 500mg/D5W 250 ML IV SCH (07:30)
[2023-07-29] MEDS: furosemide 40mg/4ml inj IV SCH (08:19)
[2023-07-29] MEDS: bisacodyl 10mg suppository rectal RC PRN (08:23)
[2023-07-29] MEDS: potassium Cl 20 mEq SR tablet PO PRN (08:23)
[2023-07-29] MEDS: CALCIUM GLUC 1gm/50ml NACL,iso 50 ML IV ONE ×2 (08:24→09:33)
[2023-07-29] MEDS: albumin (human) 25% 100 ML IV solution IV ONE (08:28)
[2023-07-29] MEDS: furosemide 20 MG/2 ML vial IV ONE (09:33)
[2023-07-29] MEDS: metoclopramide 5 mg/ml inj IV ONE (15:39)
[2023-07-29] MEDS: amiodarone 150mg/dext, iso-os 100 ML IV ONE (15:40)
[2023-07-29] MEDS: amiodarone/D5 360MG/200ML BAG 200 ML IV SCH (16:16)
[2023-07-30] VITALS (30 sets, daily range): BP systolic 112–148; BP diastolic 43–89; PULSE 72–91; RESP 13–32; O2SAT 91–98
[2023-07-30 02:47] LABS: BASOPHILS % (AUTO) 0.3 % (0-1); EOSINOPHILS # (AUTO) 0.1 X10'3 (0-0.9); EOSINOPHILS % (AUTO) 2.2 % (0-6); HEMATOCRIT 27.8 % (42.0-52.0); HEMOGLOBIN 9.3 g/dl (14.0-17.9); LYMPHOCYTES # (AUTO) 0.8 X10'3 (1.1-4.8); LYMPHOCYTES % (AUTO) 13.7 % (21-51); MEAN CORPUSCULAR HEMOGLOBIN 31.1 PG (27.0-31.0); MEAN CORPUSCULAR HGB CONC 33.4 g/dL (33.0-36.5); MEAN CORPUSCULAR VOLUME 93.1 FL (78-98); MEAN PLATELET VOLUME 9.5 FL (7.4-10.4); MONOCYTES # (AUTO) 0.4 X10'3 (0-0.9); MONOCYTES % (AUTO) 7.3 % (2-12); NEUTROPHILS # (AUTO) 4.5 X10'3 (1.8-7.7); NEUTROPHILS % (AUTO) 76.5 % (42-75); PLATELET COUNT 105 X10'3 (140-440); RED BLOOD COUNT 2.98 X10'6 (4.70-6.10); RED CELL DISTRIBUTION WIDTH 15.8 % (11.5-14.5); WHITE BLOOD COUNT 5.8 X10'3 (4.5-11.0)
[2023-07-30 03:07] LABS: ALBUMIN 2.9 G/DL (3.4-5.0); ANION GAP 9 (8-16); BLOOD UREA NITROGEN 38 MG/DL (7-18); BUN/CREATININE RATIO 19.3 (10.0-20.0); CALCIUM 8.3 MG/DL (8.5-10.1); CHLORIDE 105 MMOL/L (99-107); CREATININE 1.97 MG/DL (0.60-1.10); GLUCOSE 129 MG/DL (70-104); MAGNESIUM 2.5 MG/DL (1.5-2.4); PHOSPHORUS 3.1 MG/DL (2.3-4.5); POTASSIUM 3.6 MMOL/L (3.5-5.1); SODIUM 139 MMOL/L (135-145); eCRCL 28 ML/MIN; eGFR 32 ML/MIN
[2023-07-30] MEDS: acetylcysteine sol. 200 MG/ML 4ml vial PO SCH (08:30)
[2023-07-30] MEDS: calcium carbonate 500mg tablet PO SCH (08:42)
[2023-07-30] MEDS: potassium chloride 8mEq ER tablet PO SCH (08:45)
[2023-07-30] MEDS: iron polysaccharide complex 150mg capsule PO SCH (08:45)
[2023-07-30] MEDS: furosemide 40mg/4ml inj IV ONE (08:58)
[2023-07-30] MEDS: amiodarone 200mg tablet PO ONE (16:00)
[2023-07-30] MEDS: acetylcysteine sol. 200 MG/ML 4ml vial PO ONE (16:01)
[2023-07-30] MEDS: furosemide 40mg/4ml inj IV SCH (20:16)
[2023-07-30] MEDS: amiodarone 200mg tablet PO SCH (20:16)
[2023-07-31] VITALS (23 sets, daily range): BP systolic 108–152; BP diastolic 46–78; PULSE 72–100; RESP 16–28; TEMP 97.5–98.2; O2SAT 94–98
[2023-07-31 03:18] LABS: BASOPHILS % (AUTO) 0.6 % (0-1); EOSINOPHILS # (AUTO) 0.4 X10'3 (0-0.9); EOSINOPHILS % (AUTO) 7.9 % (0-6); HEMATOCRIT 29.8 % (42.0-52.0); HEMOGLOBIN 9.8 g/dl (14.0-17.9); LYMPHOCYTES # (AUTO) 1.1 X10'3 (1.1-4.8); LYMPHOCYTES % (AUTO) 20.3 % (21-51); MEAN CORPUSCULAR HEMOGLOBIN 31.1 PG (27.0-31.0); MEAN CORPUSCULAR VOLUME 94.2 FL (78-98); MEAN PLATELET VOLUME 9.3 FL (7.4-10.4); MONOCYTES # (AUTO) 0.6 X10'3 (0-0.9); MONOCYTES % (AUTO) 10.6 % (2-12); NEUTROPHILS # (AUTO) 3.3 X10'3 (1.8-7.7); NEUTROPHILS % (AUTO) 60.6 % (42-75); PLATELET COUNT 128 X10'3 (140-440); RED BLOOD COUNT 3.16 X10'6 (4.70-6.10); RED CELL DISTRIBUTION WIDTH 15.6 % (11.5-14.5); WHITE BLOOD COUNT 5.4 X10'3 (4.5-11.0)
[2023-07-31 03:24] LABS: ALANINE AMINOTRANSFERASE 36 U/L (12-78); ALBUMIN 2.8 G/DL (3.4-5.0); ALBUMIN/GLOBULIN RATIO 0.8 (1.1-1.5); ALKALINE PHOSPHATASE 48 IU/L (46-116); ANION GAP 8 (8-16); ASPARTATE AMINO TRANSFERASE 39 U/L (10-37); BILIRUBIN,TOTAL 0.8 MG/DL (0.1-1.0); BLOOD UREA NITROGEN 42 MG/DL (7-18); BUN/CREATININE RATIO 23.7 (10.0-20.0); CALCIUM 8.8 MG/DL (8.5-10.1); CHLORIDE 105 MMOL/L (99-107); CREATININE 1.77 MG/DL (0.60-1.10); GLUCOSE 116 MG/DL (70-104); MAGNESIUM 2.4 MG/DL (1.5-2.4); PHOSPHORUS 3.7 MG/DL (2.3-4.5); POTASSIUM 4.3 MMOL/L (3.5-5.1); SODIUM 140 MMOL/L (135-145); TOTAL CARBON DIOXIDE 27.5 MMOL/L (24-32); TOTAL PROTEIN 6.4 G/DL (6.4-8.2); eCRCL 31 ML/MIN; eGFR 37 ML/MIN
[2023-07-31] MEDS: magnesium 2GM in 50ml NS 50 ML IV PRN (03:53)
[2023-07-31] MEDS ORDERED: potassium Cl 40MEQ/1/2NS 520ml 520 ML IV PRN (09:05)
[2023-07-31] MEDS ORDERED: potassium Cl 20mEq/100mL bag 100 ML IV PRN (09:05)
[2023-07-31] MEDS ORDERED: magnesium 4gm in 100ml NS 100 ML IV PRN (09:05)
[2023-07-31] MEDS ORDERED: potassium Cl 20 mEq SR tablet PO PRN (09:05)
[2023-07-31] MEDS ORDERED: potassium Cl 40MEQ/270ML bag 250 ML IV PRN (09:05)
[2023-07-31] MEDS ORDERED: potassium CL 10mEq/100ml bag 100 ML IV PRN (09:05)
[2023-07-31] MEDS: magnesium Cl slow-release 64mg tablet PO SCH (20:00)
[2023-08-01] VITALS (12 sets, daily range): BP systolic 123–140; BP diastolic 59–75; PULSE 76–95; RESP 8–22; TEMP 97.8–98.7; O2SAT 95–100
[2023-08-01 06:13] LABS: BASOPHILS % (AUTO) 0.8 % (0-1); EOSINOPHILS # (AUTO) 0.5 X10'3 (0-0.9); EOSINOPHILS % (AUTO) 8.6 % (0-6); HEMATOCRIT 31.9 % (42.0-52.0); HEMOGLOBIN 10.9 g/dl (14.0-17.9); LYMPHOCYTES # (AUTO) 1.1 X10'3 (1.1-4.8); LYMPHOCYTES % (AUTO) 18.7 % (21-51); MEAN CORPUSCULAR HEMOGLOBIN 31.8 PG (27.0-31.0); MEAN CORPUSCULAR HGB CONC 34.2 g/dL (33.0-36.5); MEAN PLATELET VOLUME 9.1 FL (7.4-10.4); MONOCYTES # (AUTO) 0.6 X10'3 (0-0.9); MONOCYTES % (AUTO) 11.4 % (2-12); NEUTROPHILS # (AUTO) 3.4 X10'3 (1.8-7.7); NEUTROPHILS % (AUTO) 60.5 % (42-75); PLATELET COUNT 177 X10'3 (140-440); RED BLOOD COUNT 3.43 X10'6 (4.70-6.10); RED CELL DISTRIBUTION WIDTH 15.1 % (11.5-14.5); WHITE BLOOD COUNT 5.7 X10'3 (4.5-11.0)
[2023-08-01 06:33] LABS: ALBUMIN 2.7 G/DL (3.4-5.0); ANION GAP 8 (8-16); BLOOD UREA NITROGEN 42 MG/DL (7-18); BUN/CREATININE RATIO 26.1 (10.0-20.0); CALCIUM 9.1 MG/DL (8.5-10.1); CHLORIDE 105 MMOL/L (99-107); CREATININE 1.61 MG/DL (0.60-1.10); GLUCOSE 118 MG/DL (70-104); MAGNESIUM 2.3 MG/DL (1.5-2.4); POTASSIUM 4.1 MMOL/L (3.5-5.1); SODIUM 142 MMOL/L (135-145); TOTAL CARBON DIOXIDE 28.8 MMOL/L (24-32); eCRCL 34 ML/MIN; eGFR 41 ML/MIN
[2023-08-01] MEDS: magnesium 2GM in 50ml NS 50 ML IV PRN (10:57)
[2023-08-01] MEDS: metoprolol tartrate 25mg tablet PO SCH (21:05)
[2023-08-02] VITALS (10 sets, daily range): BP systolic 97–133; BP diastolic 51–73; PULSE 81–97; RESP 12–18; TEMP 97–98.9; O2SAT 27–98
[2023-08-02 06:28] LABS: BASOPHILS % (AUTO) 0.6 % (0-1); EOSINOPHILS # (AUTO) 0.8 X10'3 (0-0.9); EOSINOPHILS % (AUTO) 10.8 % (0-6); HEMATOCRIT 33.6 % (42.0-52.0); HEMOGLOBIN 11.2 g/dl (14.0-17.9); LYMPHOCYTES # (AUTO) 1.2 X10'3 (1.1-4.8); LYMPHOCYTES % (AUTO) 17.3 % (21-51); MEAN CORPUSCULAR HEMOGLOBIN 31.4 PG (27.0-31.0); MEAN CORPUSCULAR HGB CONC 33.5 g/dL (33.0-36.5); MEAN CORPUSCULAR VOLUME 93.7 FL (78-98); MEAN PLATELET VOLUME 8.7 FL (7.4-10.4); MONOCYTES # (AUTO) 0.7 X10'3 (0-0.9); MONOCYTES % (AUTO) 10.3 % (2-12); NEUTROPHILS # (AUTO) 4.3 X10'3 (1.8-7.7); PLATELET COUNT 221 X10'3 (140-440); RED BLOOD COUNT 3.58 X10'6 (4.70-6.10); RED CELL DISTRIBUTION WIDTH 15.3 % (11.5-14.5)
[2023-08-02 06:42] LABS: ALBUMIN 2.7 G/DL (3.4-5.0); ANION GAP 9 (8-16); BLOOD UREA NITROGEN 42 MG/DL (7-18); BUN/CREATININE RATIO 26.4 (10.0-20.0); CALCIUM 9.1 MG/DL (8.5-10.1); CHLORIDE 104 MMOL/L (99-107); CREATININE 1.59 MG/DL (0.60-1.10); GLUCOSE 114 MG/DL (70-104); MAGNESIUM 2.3 MG/DL (1.5-2.4); SODIUM 142 MMOL/L (135-145); TOTAL CARBON DIOXIDE 28.8 MMOL/L (24-32); eCRCL 34 ML/MIN; eGFR 41 ML/MIN
[2023-08-02] MEDS ORDERED: ondansetron 4mg rapidly disintigrating tab PO PRN (15:00)
[2023-08-03 02:00] VITALS: BP 132/69; PULSE 88; RESP 17; TEMP 97.8; O2SAT 97
[2023-08-03 06:57] LABS: BASOPHILS # (AUTO) 0.1 X10'3 (0-0.2); BASOPHILS % (AUTO) 0.7 % (0-1); EOSINOPHILS # (AUTO) 0.8 X10'3 (0-0.9); EOSINOPHILS % (AUTO) 9.9 % (0-6); LYMPHOCYTES # (AUTO) 1.4 X10'3 (1.1-4.8); LYMPHOCYTES % (AUTO) 18.1 % (21-51); MEAN CORPUSCULAR HEMOGLOBIN 31.1 PG (27.0-31.0); MEAN CORPUSCULAR HGB CONC 33.3 g/dL (33.0-36.5); MEAN CORPUSCULAR VOLUME 93.4 FL (78-98); MEAN PLATELET VOLUME 8.5 FL (7.4-10.4); MONOCYTES # (AUTO) 0.8 X10'3 (0-0.9); NEUTROPHILS # (AUTO) 4.7 X10'3 (1.8-7.7); NEUTROPHILS % (AUTO) 61.3 % (42-75); PLATELET COUNT 259 X10'3 (140-440); RED BLOOD COUNT 3.53 X10'6 (4.70-6.10); RED CELL DISTRIBUTION WIDTH 15.2 % (11.5-14.5); WHITE BLOOD COUNT 7.6 X10'3 (4.5-11.0)
[2023-08-03 07:00] VITALS: BP 128/64; PULSE 84; RESP 15; TEMP 97.7; O2SAT 96
[2023-08-03 07:18] LABS: ALBUMIN 2.7 G/DL (3.4-5.0); ANION GAP 9 (8-16); BLOOD UREA NITROGEN 44 MG/DL (7-18); BUN/CREATININE RATIO 26.7 (10.0-20.0); CALCIUM 9.2 MG/DL (8.5-10.1); CHLORIDE 104 MMOL/L (99-107); CREATININE 1.65 MG/DL (0.60-1.10); GLUCOSE 118 MG/DL (70-104); MAGNESIUM 2.2 MG/DL (1.5-2.4); POTASSIUM 3.9 MMOL/L (3.5-5.1); SODIUM 142 MMOL/L (135-145); TOTAL CARBON DIOXIDE 29.3 MMOL/L (24-32); eCRCL 33 ML/MIN; eGFR 40 ML/MIN
[2023-08-03 08:00] VITALS: O2SAT 98
[2023-08-03] MEDS: potassium Cl 20 mEq SR tablet PO PRN (08:49)
[2023-08-03] MEDS: furosemide 20MG tablet PO SCH (08:49)
[2023-08-03 09:29] VITALS: PULSE 86; RESP 19; O2SAT 98
[2023-08-03 11:00] VITALS: BP 116/59; PULSE 81; RESP 18; TEMP 97.1; O2SAT 98
[2023-08-03] MEDS ORDERED: ipratropium/albuterol 3ml nebule NEB PRN (19:01)
== END 2023-08-03 13:50 | DRG 233 ==
LOC: ER 09:41 → ED HOLD 12:58 → PCU 3S 15:14 → CICU 2S 07-26 12:47 → PCU 3S 07-31 13:04
PROVIDERS: ADMIT Internal Medicine; ATTEND Internal Medicine
PROC: 4A023N7 Measurement of Cardiac Sampling and Pressure, Left Heart, Percutaneous Approach (ICD-10-PCS; principal; 2023-07-24)
PROC: B2111ZZ Fluoroscopy of Multiple Coronary Arteries using Low Osmolar Contrast (ICD-10-PCS; 2023-07-24)
PROC: 02100Z9 Bypass Coronary Artery, One Artery from Left Internal Mammary, Open Approach (ICD-10-PCS; 2023-07-26)
PROC: 021309W Bypass Coronary Artery, Four or More Arteries from Aorta with Autologous Venous Tissue, Open Approach (ICD-10-PCS; 2023-07-26)
PROC: 06BP4ZZ Excision of Right Saphenous Vein, Percutaneous Endoscopic Approach (ICD-10-PCS; 2023-07-26)
PROC: 05HY33Z Insertion of Infusion Device into Upper Vein, Percutaneous Approach (ICD-10-PCS; 2023-07-26)
PROC: 5A1221Z Performance of Cardiac Output, Continuous (ICD-10-PCS; 2023-07-26)
PROC: B24BZZ4 Ultrasonography of Heart with Aorta, Transesophageal (ICD-10-PCS; 2023-07-26)
DX: I21.4 Non-ST elevation (NSTEMI) myocardial infarction (principal); N17.0 Acute kidney failure with tubular necrosis; E78.00 Pure hypercholesterolemia, unspecified; I25.10 Atherosclerotic heart disease of native coronary artery without angina pectoris; I12.9 Hypertensive chronic kidney disease with stage 1 through stage 4 chronic kidney disease, or unspecified chronic kidney disease; E11.22 Type 2 diabetes mellitus with diabetic chronic kidney disease; N18.30 Chronic kidney disease, stage 3 unspecified; Z87.891 Personal history of nicotine dependence
CPT/HCPCS: 0232T; 93306; 93312; 93325; 93458; 96365; 96375; 99285; 36415; 36600; 71045; 71260; 80048; 80053; 80061; 81001; 82248; 82330; 82435; 82803; 82947; 82948; 83036; 83735; 83880; 84100; 84132; 84295; 84439; 84443; 84484; 85018; 85025; 85347; 85384; 85610; 85730; 86885; 86900; 86901; 86920; 87081; 87811; 93005; 93880; 93970; 94002; 94060; 94640; 94664; 94668; 94760; 94799; 97116; 97161; 97530; 99152; A4314; A4333; A4615; A4618; A6213; A6258; A6402; A6449; A7000; C1751; C1894; C9290; G0378; J0131; J0282; J0610; J0690; J1170; J1250; J1644; J1815; J1940; J2250; J2270; J2704; J2720; J2765; J3010; J3475; J3480; J3490; J7030; J7040; J7050; J7120; P9045; P9047; Q9967